=== PATIENT | male | born 1960 | race Caucasian/White ===

== ENCOUNTER 2019-12-12 18:52 | Emergency (ER) | payer BC ==
[2019-12-12 19:08] VITALS: BP 186/105; O2SAT 97
--- NOTE | 2019-12-12 19:21 | ERPHSYRPT ---
- History of Present Illness Source: patient Exam Limitations: no limitations Patient Subjective Stated Complaint: Laceration to finger Triage Nursing Assessment: Patient ambulated back to ED and transferred self to bed. Patient A+O X3. Patient's skin pink, warm and dry. Patient here for laceration to left hand, first digit (thumb). Small evulsion noted to left hand , thumb after using a saw and it his finger. Patient complaining of intermittent aching pain 3/10. Physician History: Patient is a 59-year-old male presents to our ED for evaluation of some injury to his left thumb. Patient was using a saw and injured his left thumb approximately 1 hour prior to arrival. Pain described as an ache that is localized. No radiation. Pain reproduced with movement and palpation. Pain improved with rest. Patient declined pain medication. Tetanus is up-to-date. No other injuries reported. Patient voices no other complaints at this time. Occurred: just prior to arrival Quality: constant Severity of Pain-Max: mild Severity of Pain-Current: mild Extremities Pain Location: thumb: left Modifying Factors: Improves With: movement Associated Symptoms: none Allergies/Adverse Reactions: No Known Drug Allergies Allergy (Unverified 12/12/19 18:58) Hx Tetanus, Diphtheria Vaccination/Date Given: Yes Hx Influenza Vaccination/Date Given: No Hx Pneumococcal Vaccination/Date Given: No Immunizations Up to Date: Yes Travel Risk - International Travel Have you traveled outside of the country in past 3 weeks: No Have you or anyone close to you been diagnosed with or: No Do your reside in a community with a known COVID-19 case?: Yes If Yes where:: [facility] - Coronavirus Screening Has patient experienced Coronavirus symptoms: No - Review of Systems Constitutional: No Fever, No Chills Eyes: No Symptoms Ears, Nose, & Throat: No Symptoms Respiratory: No Symptoms, No Cough, No Dyspnea Cardiac: No Symptoms, No Chest Pain, No Edema, No Syncope Abdominal/Gastrointestinal: No Symptoms, No Abdominal Pain, No Nausea, No Vomiting, No Diarrhea Genitourinary Symptoms: No Symptoms, No Dysuria Musculoskeletal: No Symptoms, No Back Pain, No Neck Pain Skin: No Rash Neurological: No Symptoms, No Dizziness, No Focal Weakness, No Sensory Changes Psychological: No Symptoms Endocrine: No Symptoms Hematologic/Lymphatic: No Symptoms Immunological/Allergic: No Symptoms All Other Systems: Reviewed and Negative - Past Medical History Pertinent Past Medical History: No Neurological History: No Pertinent History ENT History: No Pertinent History Cardiac History: No Pertinent History Respiratory History: No Pertinent History Endocrine Medical History: No Pertinent History Musculoskeletal History: No Pertinent History GI Medical History: No Pertinent History History: No Pertinent History Psycho-Social History: No Pertinent History Male Reproductive Disorders: Prostate Cancer - Past Surgical History Past Surgical History: No Neuro Surgical History: No Pertinent History Cardiac: No Pertinent History Respiratory: No Pertinent History Gastrointestinal: No Pertinent History Genitourinary: No Pertinent History Musculoskeletal: No Pertinent History Male Surgical History: No Pertinent History - Social History Smoking Status: Never smoker Exposure to second hand smoke: No Drug Use: none Patient Lives Alone: Yes - Nursing Vital Signs Nursing Vital Signs: Initial Vital Signs Temperature 98.0 F 12/12/19 18:59 Pulse Rate 48 L 12/12/19 18:59 Respiratory Rate 18 12/12/19 18:59 Blood Pressure 186/105 12/12/19 18:59 O2 Sat by Pulse Oximetry 97 12/12/19 18:59 Pain Scale Pain Intensity 3 - Physical Exam General Appearance: no apparent distress, alert Eyes, Ears, Nose, Throat Exam: moist mucous membranes Neck Exam: normal inspection, non-tender, supple Cardiovascular/Respiratory Exam: chest non-tender, normal breath sounds, regular rate/rhythm, no respiratory distress Abdominal Exam: non-tender, No guarding Back Exam: normal inspection, No vertebral tenderness Hand Exam: laceration (Avulsion injury to distal aspect of left thumb. No apparent tendon injury. Radial pulse palpable. Cap refill less than 2 seconds. No subungual hematoma.) Neuro/Tendon Exam: normal sensation, normal motor functions Mental Status Exam: alert, oriented x 3, cooperative Skin Exam: normal color, warm, dry SpO2 Interpretation: normal SpO2: 97 O2 Delivery: Room Air - Radiology Exams Hand X-ray Interpretation: Interpreted by me (No fractures or dislocations) Ordered Tests: Active Orders 24 hr Category Date Time Status Wound Care STAT Care 12/12/19 19:34 Active HAND (MINIMUM 3 VIEWS) Stat Exams 12/12/19 19:08 Taken Medication Summary Discontinued Medications Generic Name Dose Route Start Last Admin Trade Name Freq PRN Reason Stop Dose Admin Hydrocodone Bitart/Acetaminophen Confirm 12/12/19 19:41 [place] 5/325 Mg Administered 12/12/19 19:42 Dose 2 tab .ROUTE .STK-MED ONE Hydrocodone Bitart/Acetaminophen 2 tab 12/12/19 19:41 12/12/19 19:43 [place] 5/325 Mg PO 12/12/19 19:42 2 tab SENT HOME W/ PATIENT ONE Administration Bacitracin Zinc 0.9 gm 12/12/19 19:35 12/12/19 19:35 Baciguent Packet TP 12/12/19 19:36 0.9 gm STAT ONE Administration Bacitracin Zinc Confirm 12/12/19 19:34 [place] Packet Administered 12/12/19 19:35 Dose 1 gm .ROUTE .STK-MED ONE - Progress Progress: improved Progress Note: 12/12/19 19:53 Patient reassessed. He feels well. Patient declined pain medication. But he agreed to take pain medication at home. Wound was irrigated by RN. No indication for laceration repair at this time. X-ray was read by ED physician. No obvious fractures or dislocations. Wound will be treated with local wound care only. Antibiotics transmitted to patient's pharmacy. Pain medication transmitted as well. Patient to follow-up with his primary care doctor, Dr. Reyes within 48 hours for reevaluation. Patient advised to have that is tetanus is up-to-date. Patient voices no other complaints at this time. Wound dressed with a bulky dry sterile dressing. 12/12/19 19:54 Patient was seen and evaluated at approximately 7:15 PM. Counseled pt/family regarding: diagnosis, need for follow-up, rad results - Departure Departure Disposition: Home Clinical Impression: Thumb laceration Condition: Stable Critical Care Time: No Referrals: NELSON REYES MD [Primary Care Provider] - Instructions: Wound Care (DC) Additional Instructions: Discharge/Care Plan SIRENA PRABHAKAR was seen on 12/12/19 in the Emergency Room. The patient was counseled regarding Diagnosis,Lab results, Imaging studies, need for follow up and when to return to the Emergency Room. Prescriptions given: Discharge Note I have spoken with the patient and/or caregivers. I have explained the patient' s condition, diagnosis and treatment plan based on the information available to me at this time. I have answered the patient's and/or caregiver's questions and addressed any concerns. The patient and/or caregivers have as good understanding of the patient's diagnosis, condition and treatment plan as can be expected at this point. The vital signs have been stable. The patient's condition is stable and appropriate for discharge from the emergency department. The patient will pursue further outpatient evaluation with the primary care physician or other designated or consulting physician as outlined in the discharge instructions. The patient and/or caregivers are agreeable to this plan of care and follow-up instructions have been explained in detail. The patient and/or caregivers have received these instruction. The patient/and or caregivers are aware that any significant change in condition or worsening of symptoms should prompt an immediate return to this or the closest emergency department or call 911. Prescriptions: Cephalexin Mh 500 mg [Keflex 500 mg] 500 mg PO TID #21 capsule Ketorolac Tromethamine [Toradol] 10 mg PO TID 5 Days #15 tablet
[2019-12-12] MEDS ORDERED: BACIGUENT PACKET ONE (19:34)
[2019-12-12] MEDS ORDERED: BACIGUENT PACKET TP ONE (19:35)
[2019-12-12] MEDS ORDERED: NORCO 5/325 MG PO ONE (19:41)
[2019-12-12] MEDS ORDERED: NORCO 5/325 MG ONE (19:41)
[2019-12-12 19:55] VITALS: PULSE 44
--- NOTE | 2019-12-13 08:41 | XRAY ---
Indication: Thumb pain following injury. Comparison: None 3 views left hand demonstrates small distal 1st phalanx laceration. Query old fracture deformities distal 3rd-4th metacarpals and distal radius. No other bony, articular, or soft tissue abnormalities.
== END 2019-12-12 19:56 | disposition home or self-care (01) ==
LOC: ED 18:52
DX: S61.012A Laceration without foreign body of left thumb without damage to nail, initial encounter (principal); W31.2XXA Contact with powered woodworking and forming machines, initial encounter
CPT/HCPCS: 73130; 99283; A9270-GY